=== PATIENT | male | born 1965 | race Caucasian/White ===

== ENCOUNTER 2023-09-26 08:52 | Outpatient (RCR) | payer OTHER, SELFPAY | END 2023-12-19 09:00 | disposition hospice, inpatient (51) | LOC: HO.WCC 08:52 | PROVIDERS: PCP Internal Medicine; Visit Provider Surgery | DX: L89.150 Pressure ulcer of sacral region, unstageable (principal) | CPT/HCPCS: 11043; 97597 ==